=== PATIENT | female | born 1965 ===

== ENCOUNTER 2018-08-16 09:36 | Outpatient (CLI) | payer OTHER | END 2018-08-16 09:37 | disposition home or self-care (01) | LOC: C.LAB 09:36 | DX: E11.8 Type 2 diabetes mellitus with unspecified complications (principal) ==

== ENCOUNTER 2018-09-05 07:26 | Outpatient (CLI) | payer OTHER | END 2018-09-05 07:27 | disposition home or self-care (01) | LOC: C.LAB 07:26 ==

== ENCOUNTER 2018-09-07 14:11 | Outpatient (CLI) | payer OTHER | END 2018-09-07 14:12 | disposition home or self-care (01) | LOC: C.LAB 14:11 | DX: K76.0 Fatty (change of) liver, not elsewhere classified (principal); Z12.11 Encounter for screening for malignant neoplasm of colon ==

== ENCOUNTER 2018-10-29 09:24 | Outpatient (CLI) | payer OTHER | END 2018-10-29 09:25 | disposition home or self-care (01) | LOC: C.USIC 09:24 | DX: K76.0 Fatty (change of) liver, not elsewhere classified (principal) ==